=== PATIENT | male | born 1990 | race Caucasian/White ===

== ENCOUNTER 2020-11-10 13:32 | Emergency (ER) | payer OTHER ==
[~2020-11-10] VITALS: Ht 182.9 cm; Wt 99.8 kg
== END 2020-11-10 16:45 | disposition home or self-care (01) ==
LOC: ER 13:32
DX: S60.222A Contusion of left hand, initial encounter (principal); R07.81 Pleurodynia; X58.XXXA Exposure to other specified factors, initial encounter
CPT/HCPCS: 71046; 73130; 99285-25

== ENCOUNTER 2022-07-10 16:27 | Emergency (ER) | payer OTHER ==
[~2022-07-10] VITALS: Ht 182.9 cm; Wt 96.2 kg
[2022-07-10 16:36] VITALS: BP 143/93
[2022-07-10] MEDS ORDERED: Norco 5-325 Ta1 EACH PO (17:48)
== END 2022-07-10 17:57 | disposition home or self-care (01) ==
LOC: ER 16:27
DX: S50.812A Abrasion of left forearm, initial encounter (principal); V29.99XA Rider (driver) (passenger) of other motorcycle injured in unspecified traffic accident, initial encounter
CPT/HCPCS: 99282